=== PATIENT | female | born 1975 | race American Indian/Alaskan Native ===

== ENCOUNTER 2017-03-25 09:48 | Outpatient (CLI) | payer BC ==
--- NOTE | 2017-03-25 11:03 | Mammography Report ---
BILATERAL DIGITAL AUGMENTED DIAGNOSTIC MAMMOGRAM WITH CAD and LEFT BREAST ULTRASOUND: 03/25/17 09:48:00 CLINICAL: Left breast pain. COMPARISON:06/12/14 FINDINGS: Bilateral MLO and CC views with and without implant displacement demonstrate mostly fatty breasts. No mass, architectural distortion or suspicious calcifications. Intact subglandular implants. Ultrasound of the left breast (including all four quadrants and the retroareolar area) was performed and demonstrated a benign cyst at 3 o'clock 6 cm from the nipple measuring 4 x 3 x 4 mm and a complex cyst at 6 o'clock 4 cm from the nipple measuring 5 x 2 x 5 mm. No solid mass or shadowing. Normal fatty and fibroglandular structures in the upper portion of the left breast where she feels pain. IMPRESSION: 2 benign cyst of the left breast and otherwise negative exams. No explanation for left upper breast pain. BI-RADS CATEGORY: 2 -- Benign RECOMMENDATION: Clinical followup and routine mammographic screening in one year.
== END 2017-03-25 09:49 | disposition home or self-care (01) ==
LOC: SPVWC 09:48
PROVIDERS: ATTEND Family Medicine
DX: N60.02 Solitary cyst of left breast (principal); N64.4 Mastodynia
CPT/HCPCS: 76641; G0206

== ENCOUNTER 2018-12-21 09:15 | Outpatient (CLI) | payer BC ==
--- NOTE | 2018-12-25 14:20 | Mammography Report ---
BILATERAL SCREENING MAMMOGRAM DIGITAL WITH CAD and IMPLANT DISPLACED VIEWS with 3D TOMOSYNTHESIS INDICATION: Screening. COMPARISONS: None. FINDINGS: 2D and 3D craniocaudal and mediolateral oblique views of both breasts were obtained utilizi [employer] digital acquisition. 3-D tomographic views were performed with displacement of implants. In additi on to standard review, the examination was analyzed for possible abnormalities using a computer-marly wili detection device (iCAD). The breasts are mostly fatty. Intact subglandular implants. No suspicious findings are noted in eithe r breast. IMPRESSION: NO EVIDENCE OF MALIGNANCY IN EITHER BREAST. SCREENING MAMMOGRAPHY IN ONE YEAR IS RECOMMENDED. BI-RADS CATEGORY 1: NEGATIVE COMMENT: Patient follow-up letters are generated by our [employer] application. Signer Name: Brad Hein MD Signed: 12/25/2018 2:16 PM Workstation Name: [id number]
--- NOTE | 2018-12-28 10:31 | Mammography Report ---
BILATERAL SCREENING MAMMOGRAM DIGITAL WITH CAD and IMPLANT DISPLACED VIEWS with 3D TOMOSYNTHESIS INDICATION: Screening. COMPARISONS: None. FINDINGS: 2D and 3D craniocaudal and mediolateral oblique views of both breasts were obtained utilizi [employer] digital acquisition. 3-D tomographic views were performed with displacement of implants. In additi on to standard review, the examination was analyzed for possible abnormalities using a computer-marly wili detection device (iCAD). The breasts are mostly fatty. Intact subglandular implants. No suspicious findings are noted in eithe r breast. IMPRESSION: NO EVIDENCE OF MALIGNANCY IN EITHER BREAST. SCREENING MAMMOGRAPHY IN ONE YEAR IS RECOMMENDED. BI-RADS CATEGORY 1: NEGATIVE COMMENT: Patient follow-up letters are generated by our [id number] application. Signer Name: Brad Hein MD Signed: 12/25/2018 2:16 PM Workstation Name: [id number]
== END 2018-12-21 09:16 | disposition home or self-care (01) ==
LOC: SPVWC 09:15
PROVIDERS: ATTEND Family Medicine
DX: Z12.31 Encounter for screening mammogram for malignant neoplasm of breast (principal)
CPT/HCPCS: 77063; 77067

== ENCOUNTER 2020-11-14 08:08 | Outpatient (CLI) | payer BC ==
--- NOTE | 2020-11-14 10:54 | Mammography Report ---
DIGITAL SCREENING MAMMOGRAM WITH TOMOSYNTHESIS WITH CAD, 11/14/2020 CLINICAL INFORMATION / INDICATION: Routine Screening Mammography. TECHNIQUE: Digital bilateral 2D and 3D mammography with tomosynthesis was obtained in the craniocaud al and mediolateral oblique projections. Computer-Aided Detection (CAD) analysis was used for interp retation of this study. COMPARISON: 12/21/2018 FINDINGS: Breast Density: The breasts are almost entirely fatty. No dominant mass, suspicious calcifications, or architectural distortion in either breast. Bilateral silicone prepectoral breast implants are present. IMPRESSION: No mammographic evidence of malignancy. Follow up recommendation: Routine yearly BI-RADS Category 2: Benign. A "normal" or negative report should not discourage follow up or biopsy of a clinically significant f inding. A written summary of these findings will be mailed to the patient. The patient will be entered into a mammography reporting system which will generate a reminder letter for the patient's next appointmen t at the appropriate interval. The [employer] recommends yearly mammograms starting at age 40 and continuing as l bony as a woman is in good health. Breast MRI is recommended for women with an approximate 20-25% or greater lifetime risk of breast cancer, including women with a strong family history of breast or ova shaina cancer or who have been treated for Hodgkin's disease. Signer Name: Gege Hernandez MD Signed: 11/14/2020 10:50 AM Workstation Name: [id number]
== END 2020-11-14 08:09 | disposition home or self-care (01) ==
LOC: SPVWC 08:08
PROVIDERS: ATTEND Physician Assistant Medical
DX: Z12.31 Encounter for screening mammogram for malignant neoplasm of breast (principal)
CPT/HCPCS: 77063; 77067

== ENCOUNTER 2022-01-13 13:23 | Outpatient (CLI) | payer BC | END 2022-01-13 13:24 | disposition home or self-care (01) | LOC: SPVWC 13:23 | PROVIDERS: ATTEND Physician Assistant | DX: Z12.31 Encounter for screening mammogram for malignant neoplasm of breast (principal) | CPT/HCPCS: 77063; 77067 ==